=== PATIENT | male | born 1965 | race African-American/Black ===

== ENCOUNTER 2024-02-12 15:47 | Emergency (ER) | payer MEDICARE, OTHER ==
[2024-02-12 15:58] VITALS: BP 153/84; PULSE 91; RESP 18; TEMP 97.6; BMI 33.0
[2024-02-12] MEDS ORDERED: ACETAMINOPHEN 500 MG TABLET (FP) ONE (17:48)
[2024-02-12] MEDS: ACETAMINOPHEN 500 MG TABLET (FP) PO ONE (17:53)
== END 2024-02-12 18:11 | disposition home or self-care (01) ==
LOC: JERFT 15:47
DX: J02.8 Acute pharyngitis due to other specified organisms (principal)
CPT/HCPCS: 87651; 99283-25

== ENCOUNTER 2025-01-01 20:11 | Emergency (ER) | payer OTHER ==
[2025-01-01 20:16] VITALS: BMI 33.0
[2025-01-01 22:05] LABS: ABSOLUTE IMMATURE GRANULOCYTES 0.01 x10^3/uL (0.0-0.031); BASOPHILS # 0.05 x10^3/uL (0.01-0.08); EOSINOPHIL % 1.6 % (0.8-7.0); EOSINOPHILS # 0.12 x10^3/uL (0.04-0.54); HEMATOCRIT 48.9 % (40.1-51.0); HEMOGLOBIN 14.9 g/dL (13.7-17.5); MCHC 30.5 g/dl (32.3-36.5); MEAN CELL VOLUME 86.9 fl (79.0-92.2); MEAN PLT VOLUME 9.7 fl (9.4-12.4); MONOCYTE % 9.6 % (5.3-12.2); PLATELET COUNT 273 x10^3/uL (163-337); RDW 12.5 % (12.2-16.1)
[2025-01-01 22:23] LABS: CALCIUM 9.7 mg/dL (8.5-10.1)
[2025-01-01] MEDS ORDERED: ACETAMINOPHEN INJECTION 100 ML ONE (22:23)
[2025-01-01] MEDS ORDERED: METOCLOPRAMIDE HCL INJECTION 10 MG/2 ML VIAL ONE (22:23)
[2025-01-01 22:24] LABS: ALBUMIN 3.9 g/dl (3.4-5.0); BLOOD UREA NITROGEN 13.8 mg/dL (7-18); MAGNESIUM 1.7 mg/dL (1.8-2.4)
[2025-01-01 22:28] LABS: BILIRUBIN,TOTAL 0.5 mg/dL (0.2-1); TOT PROT 7.5 g/dl (6.4-8.2)
[2025-01-01] MEDS: SODIUM CHLORIDE 500 ML IV STA (22:33)
[2025-01-01] MEDS: ACETAMINOPHEN 1000 MG/100 ML BAG IVPB ONE (22:33)
[2025-01-01] MEDS: METOCLOPRAMIDE HCL INJECTION 10 MG/2 ML VIAL IVPB ONE (22:34)
[2025-01-01 23:42] VITALS: BP 148/90; PULSE 72; RESP 18; TEMP 98.3
== END 2025-01-02 01:06 | disposition home or self-care (01) ==
LOC: JER 20:11
PROC: 3E033NZ Introduction of Analgesics, Hypnotics, Sedatives into Peripheral Vein, Percutaneous Approach (ICD-10-PCS; principal; 2025-01-01)
PROC: 3E033GC Introduction of Other Therapeutic Substance into Peripheral Vein, Percutaneous Approach (ICD-10-PCS; 2025-01-01)
PROC: 3E0337Z Introduction of Electrolytic and Water Balance Substance into Peripheral Vein, Percutaneous Approach (ICD-10-PCS; 2025-01-01)
DX: R51.9 Headache, unspecified (principal); R42 Dizziness and giddiness
CPT/HCPCS: 36415; 80053; 82962; 83735; 84484; 85025; 93005; 93010; 99284-25; J0131